=== PATIENT | male | born 1985 | race Caucasian/White ===

== ENCOUNTER 2018-12-28 16:44 | Outpatient (CLI) | payer BC | END 2018-12-28 16:45 | disposition home or self-care (01) | LOC: CTENTCT 16:44 | PROVIDERS: ATTEND Otolaryngology Plastic Surgery within the Head & Neck | DX: J30.9 Allergic rhinitis, unspecified (principal) | CPT/HCPCS: 70486 ==

== ENCOUNTER 2019-01-06 09:06 | Day surgery (SDC) | payer BC ==
[2019-01-05 09:53] VITALS: BMI 29.3
[2019-01-06] MEDS ORDERED: Oxymetazoline HCl 0.05% ( 15 ML ) ONE ×2 (10:09→10:21)
[2019-01-06] MEDS ORDERED: Lidocaine 1% w/Epinephrine 1:100K 20 ML VIAL ONE (10:21)
[2019-01-06] MEDS ORDERED: Fentanyl 100 MCG/2 ML VIAL ONE ×3 (10:57→13:23)
[2019-01-06] MEDS ORDERED: Lidocaine 1% PF 5 ML VIAL ONE (11:30)
[2019-01-06] MEDS ORDERED: PROPOFOL 200 MG/20 ML VIAL ONE (11:30)
[2019-01-06] MEDS ORDERED: Succinylcholine Chloride 20 MG/ML 10 ml SYRINGE FS ONE (11:30)
[2019-01-06] MEDS ORDERED: Dexamethasone 20 MG/5 ML VIAL ONE (11:30)
[2019-01-06] MEDS ORDERED: Ondansetron PF 4 MG/2 ML Vial ONE (11:30)
[2019-01-06] MEDS ORDERED: Bacitracin Zinc Ointment 30 gm TUBE ONE (12:02)
[2019-01-06] MEDS ORDERED: Hydrocodone-Acetamin 15 ML UDCUP ONE (14:10)
--- NOTE | 2019-01-07 10:36 | OP ---
DATE OF PROCEDURE: 01/06/2019 PREOPERATIVE DIAGNOSES: 1. Chronic rhinosinusitis. 2. Bilateral nasal polyposis. 3. Nasal septal deviation. 4. Bilateral inferior turbinate hypertrophy. 5. Chronic adenotonsillitis. 6. Adenotonsillar hypertrophy. 7. Obstructive sleep apnea. POSTOPERATIVE DIAGNOSES: 1. Chronic rhinosinusitis. 2. Bilateral nasal polyposis. 3. Nasal septal deviation. 4. Bilateral inferior turbinate hypertrophy. 5. Chronic adenotonsillitis. 6. Adenotonsillar hypertrophy. 7. Obstructive sleep apnea. PROCEDURES PERFORMED: 1. Bilateral endoscopic sinus surgery, total ethmoidectomy with removal of tissue. 2. Bilateral endoscopic sinus surgery, maxillary antrostomies with removal of tissue. 3. Bilateral endoscopic sinus surgery, frontal sinusotomy with removal of tissue. 4. Bilateral endoscopic sphenoidotomies. 5. Nasal septoplasty. 6. Bilateral inferior turbinate submucosal resection. 7. Tonsillectomy and adenoidectomy. ESTIMATED BLOOD LOSS: 50 mL. COMPLICATIONS: None. ANESTHESIA: GETA. DESCRIPTION OF PROCEDURE: TONSILLECTOMY AND ADENOIDECTOMY: After consent was obtained, the patient was identified, brought to the operating room, and placed on the operating table in the supine position. General endotracheal anesthesia and intravenous access were obtained and we proceeded with positioning the patient for oropharyngeal surgery. Oropharyngeal exposure was obtained with a Yolanda-Jaden mouth gag after a head drape was placed and secured with a towel clip. The Yolanda-Jaden mouth gag was then suspended from the Russo tray and palatal elevation was achieved with a red rubber catheter. The right tonsil was addressed first. We used a curved Allis to grasp the tonsil and retract it medially as an anterior pillar incision was made. The retrotonsillar fascial plane was then established and blunt dissection was performed with the suction cautery. Blood vessels were anticipated, identified, and cauterized as they were encountered. Ultimately, dissection was carried to the posterior tonsillar pillar mucosa which was incised hemostatically, as well as the base of tongue connection. The tonsil was then passed off as a specimen and bleeding points within the tonsillar bed were cauterized under direct visualization. We subsequently turned our attention to the contralateral side, where using a similar technique, a near identical procedure was performed. Again, the tonsil was grasped and retracted medially with a curved Allis. The retrotonsillar fascial plane was established and while the anterior pillar was retracted medially. The hemostatic blunt dissection of the tonsil with a suction cautery was performed with blood vessels anticipated, identified, and cauterized as they were encountered. Again, dissection continued to the base of tongue and posterior tonsillar pillar mucosa which was incised in a hemostatic fashion. The tonsillar beds were then carefully inspected and bleeding points were identified and cauterized with a suction cautery. After this portion of the procedure, hemostasis was completely obtained. Under direct mirror visualization, we visualized the adenoid pad. Under direct mirror visualization, we removed the bulk of the adenoid tissue with the adenoid curette. We then packed the nasopharynx for an appropriate period of time with Ars-Ldfulrjsna-eoeulctpz tonsillar sponges. After a period of observation, we removed the pack. Under indirect mirror visualization, we obtained hemostasis and vaporization of residual adenoid tissue with electrocautery. The patient's oral cavity was copiously irrigated with iced saline and subsequently suctioned. After completion of the procedure, the nasal cavity and oropharynx were irrigated and suctioned as were the gastric contents. Following this, the uvula and soft palate were measured multiple times to ensure adequate palate length. Following this, the excessive portions of the uvula were resected with the Bovie electrocautery, and the mucosal edges were reapproximated with a 3-0 chromic gut stitch. NASAL SEPTOPLASTY AND BILATERAL INFERIOR TURBINATE SUBMUCOSAL RESECTION: Tube was secured in the left lower lip. Patient was then placed in the beach chair position, and Afrin pledgets were placed in the nasal cavity. Injections of 1% lidocaine with 1:100,000 epinephrine were made into the nasal septum as well as the inferior turbinates. Patient was then prepped and draped in standard surgical fashion for nasal surgery. Following this, the Afrin pledgets were removed. A Gary incision was made on the left nasal septum. Submucoperichondrial dissection was performed. The deviated portions of the septum included portions of the cartilage and the bony septum. These isolated areas were removed using 3 cutting rongeurs. There was noted to be a large dorsal and caudal strut, left intact for support of the nose. The mucoperichondrial flaps were then reapproximated using a 4-0 gut stitch. Any straight pieces of cartilage were crushed prior to this and placed between the mucoperichondrial flaps. Following this, the inferior turbinates were then punctured with a submucosal coblation wand, and submucosal coblations were performed of multiple areas of the inferior portion of the anterior inferior turbinate. Please note that the submucosal microdebrider was used to submucosally resect the anterior and inferior portions of the inferior turbinates bilaterally. Following this, the 0-degree endoscope was advanced in the middle meatus. The middle turbinates were gently medialized, and the uncinate process was visualized. The uncinate process was anteriorly fractured using a ball-ended probe bilaterally and was removed using the 0-degree microdebrider and the up-biting Blakesley forceps bilaterally. Following this, the natural maxillary sinus ostia was identified and was widened using the 0-degree microdebrider and the straight Blakesley forceps. Following this, the ethmoidal bulla was identified and was punctured on its medial and inferior aspect with the microdebrider. It was removed using the microdebrider and the up-biting Blakesley forceps. Following this, the grand lamella was identified and was punctured into the posterior ethmoidal cells using the microdebrider. Working from posterior to anterior, the ethmoidal cells were opened. Nasal polyps were found and were removed throughout the ethmoidal sinuses as well as the maxillary sinus. Following this, the sphenoid sinuses were approached by staying within the previous ethmoidectomies. The anterior wall of the sphenoid sinus was identified, and a puncture was made with a Hansen tip suction into the sphenoid sinuses bilaterally. Following this, the 0-degree microdebrider was used to widen the sphenoidotomies medially and inferiorly bilaterally. Following this, 45-degree endoscope was used to visualize the frontal recess and frontal sinus ostia. The 40-degree microdebrider was used to widen the frontal sinus ostia bilaterally. Following this, nasal cavity was irrigated. Mirapex was placed within the middle meatus. PROPEL stents were placed within the maxillary sinus bilaterally. Welsh splints were placed and secured. The patient tolerated the procedure well. The patient was then awakened and transferred to the recovery room, where the patient remained in stable condition prior to discharge to Day Stay. Job ID: [id number]
== END 2019-01-06 16:10 | disposition home or self-care (01) ==
LOC: SDC 09:06
PROVIDERS: ATTEND Otolaryngology Plastic Surgery within the Head & Neck
PROC: 09BT8ZZ Excision of Left Frontal Sinus, Via Natural or Artificial Opening Endoscopic (ICD-10-PCS; principal; 2019-01-06)
PROC: 0CTQXZZ Resection of Adenoids, External Approach (ICD-10-PCS; principal; 2019-01-06)
PROC: 09TV8ZZ Resection of Left Ethmoid Sinus, Via Natural or Artificial Opening Endoscopic (ICD-10-PCS; principal; 2019-01-06)
PROC: 09BS8ZZ Excision of Right Frontal Sinus, Via Natural or Artificial Opening Endoscopic (ICD-10-PCS; principal; 2019-01-06)
PROC: 09TL0ZZ Resection of Nasal Turbinate, Open Approach (ICD-10-PCS; principal; 2019-01-06)
PROC: 0CTPXZZ Resection of Tonsils, External Approach (ICD-10-PCS; principal; 2019-01-06)
PROC: 099W8ZZ Drainage of Right Sphenoid Sinus, Via Natural or Artificial Opening Endoscopic (ICD-10-PCS; principal; 2019-01-06)
PROC: 099X8ZZ Drainage of Left Sphenoid Sinus, Via Natural or Artificial Opening Endoscopic (ICD-10-PCS; principal; 2019-01-06)
PROC: 09BR8ZZ Excision of Left Maxillary Sinus, Via Natural or Artificial Opening Endoscopic (ICD-10-PCS; principal; 2019-01-06)
PROC: 0CBNXZZ Excision of Uvula, External Approach (ICD-10-PCS; principal; 2019-01-06)
PROC: 09BQ8ZZ Excision of Right Maxillary Sinus, Via Natural or Artificial Opening Endoscopic (ICD-10-PCS; principal; 2019-01-06)
PROC: 09SM0ZZ Reposition Nasal Septum, Open Approach (ICD-10-PCS; principal; 2019-01-06)
PROC: 09TU8ZZ Resection of Right Ethmoid Sinus, Via Natural or Artificial Opening Endoscopic (ICD-10-PCS; principal; 2019-01-06)
DX: J32.9 Chronic sinusitis, unspecified (principal); J33.9 Nasal polyp, unspecified; J34.2 Deviated nasal septum; J34.3 Hypertrophy of nasal turbinates; J35.03 Chronic tonsillitis and adenoiditis; G47.33 Obstructive sleep apnea (adult) (pediatric); J30.9 Allergic rhinitis, unspecified; Z79.84 Long term (current) use of oral hypoglycemic drugs; Z99.89 Dependence on other enabling machines and devices
CPT/HCPCS: 36416; 88304; J0131; J1100; J2001; J2405; J2704; J3010